=== PATIENT | male | born 1975 | race Caucasian/White ===

== ENCOUNTER 2021-09-21 07:25 | Day surgery (SDC) | payer BC ==
[~2021-09-21] VITALS: Ht 185.4 cm; Wt 94.3 kg
[~2021-09-21 07:25] MED LIST: CANDICIDAL CAP1 EACH PO; CRESTOR5 MG PO; MULTIPLE VITAM1 EAC2 PO; ZYRTEC10 MG PO
--- NOTE | 2021-09-21 08:55 | NUR ---
09/21/21 0855 Yoli Stevens 0848- PT ARRIVES TO PACU REACTIVE TO VERBAL STIMULI. PT REPORTS NO PAIN OR NAUSEA. PT FALLS INSTANTLY BACK TO SLEEP WHEN NOT BEING STIMULATED. RESP EVEN AND UNLABORED. OXYGEN SAT HIGH 90'S TO 100% ON 2L VIA CO2 NC. 0853- PT WOKEN AND ENCOURAGED TO TAKE BREATHS RESP RATE IS 8 BPM. PT IS ABLE TO DO THIS.
--- NOTE | 2021-09-22 10:46 | OR ---
[facility] [address] [place], [place] [address] Signed DATE OF OPERATION: 09/21/2021 SURGEON: Lam Jensen MD PREOPERATIVE DIAGNOSIS: Colon screening. POSTOPERATIVE DIAGNOSIS: Palpable polyps x3. PROCEDURE: Total colonoscopy to cecum with cold snare polypectomy x1 and cold morcellation polypectomy x2. ANESTHESIA: Intravenous sedation; fentanyl 100 mcg and Versed 4 mg. INDICATION: This 46-year-old white man is a patient of Dr. Jeny Rivera and is here for screening colonoscopy. He has no family history of colon cancer and no symptoms of bleeding, diarrhea or constipation. He understands the risk of colonoscopy, which include but are not limited to bleeding, infection, perforation, and so on. Understanding these risks, he wished to proceed. FINDINGS: The prep was excellent. Complete colonoscopy was undertaken to the cecum. There was a relatively small flat polyp of the proximal descending colon which was excised with cold snare technique completely. Two other small hyperplastic appearing polyps were noted, one in the sigmoid and the other somewhat distal. There were no other findings of concern. DESCRIPTION OF PROCEDURE: The patient was brought to the endoscopy suite and placed in the lateral decubitus position, given intravenous sedation to the point of slurred speech and nystagmus. Digital rectal examination was normal. An Olympus video colonoscope was passed in the rectum and manipulated throughout the colon ultimately intubating the cecum itself. The ileocecal valve and appendiceal orifice were normal. Scope was withdrawn from that point. Examination throughout showed no sign of abnormality into the proximal descending colon. A small somewhat flat Electronically Signed By: LAM JENSEN MD 09/22/21 1046 PATIENT NAME: SABAS JOSE OPERATIVE REPORT DATE OF : 71 REPORT #: [id number] PHYSICIAN: LAM JENSEN MD PCP: JENY RIVERA MD REPORT IS CONFIDENTIAL AND NOT TO BE RELEASED WITHOUT AUTHORIZATION [facility] [address], [place] [address] Signed polyp was noted in the area. It was at about 90 cm. Narrow band imaging confirmed high probability that this represents adenomatous polyp. This was excised with cold snare technique and withdrawn and passed for pathology. The scope was further withdrawn. There were two areas of probable hyperplastic polyps, one in the sigmoid and the other in the rectosigmoid, both excised with cold morcellation technique. Retroflexed view of the rectum was normal. Scope was removed and the patient was taken to the recovery room in good condition. CONCLUDING DIAGNOSIS: Polyps x3, excised. PLAN: Recommend repeat colonoscopy in 3 to 5 years depending on pathology report; if hyperplastic polyps were noted, can go certainly 7 to 10 years, sooner if symptoms should occur of course. He will return to the ongoing care of Dr. Jeny Rivera otherwise. MD KRISTEN Issa/ADAL /[id number] cc: Jeny Rivera MD Copies: JENY RIVERA DMD ~ Electronically Signed By: LAM JENSEN MD 09/22/21 1046 PATIENT NAME: SABAS JOSE OPERATIVE REPORT DATE OF : 71 REPORT #: [id number] PHYSICIAN: LAM JENSEN MD PCP: JENY RIVERA MD REPORT IS CONFIDENTIAL AND NOT TO BE RELEASED WITHOUT AUTHORIZATION
--- NOTE | 2021-09-23 09:07 | PATH ---
[facility] [address] [place], [place] [address] Signed SPECIMEN(S): A DESCENDING/LEFT COLON POLYP SPECIMEN(S): B COLON POLYP AT 40 CM SPECIMEN(S): C RECTOSIGMOID POLYP SPECIMEN SOURCE: A. DESCENDING/LEFT COLON POLYP B. COLON POLYP AT 40 CM C. RECTOSIGMOID POLYP CLINICAL HISTORY: Screening colonoscopy. Postop: Hyperplastic polyps. FINAL PATHOLOGIC DIAGNOSIS: A. Colon, descending, polyp, polypectomy: - Tubular adenoma. - Negative for high-grade dysplasia or malignancy. B. Colon, polyp at 40 cm, polypectomy: - Favor focal early tubular adenoma. - Negative for high-grade dysplasia or malignancy. C. Colon, rectosigmoid, polyp, polypectomy: - Hyperplastic polyp. - Negative for dysplasia or malignancy. COMMENT: Regarding specimen B: Multiple additional deeper levels were examined. NAL:cml:C2NR MICROSCOPIC EXAMINATION: Histologic sections of all submitted blocks are examined by light microscopy. These findings, together with the gross examination, support the pathologic diagnosis. GROSS DESCRIPTION: Three specimens are received in three containers, labeled "WH." A. The specimen, labeled "WH, descending colon polyp," is received in formalin and consists of one beth soft tissue fragment that measures 0.6 cm in greatest dimension. The specimen is bisected and entirely submitted in cassette (A1). B. The specimen, labeled "WH, colon polyp at 40 cm," is received in formalin and consists of three beth soft tissue fragments that measure 0.1-0.2 cm in greatest dimension. The specimen is entirely PATIENT NAME: SABAS JOSE PATHOLOGY DATE OF : 71 REPORT #: [id number] PHYSICIAN: NEGRO HYMAN PCP: JENY RIVERA MD REPORT IS CONFIDENTIAL AND NOT TO BE RELEASED WITHOUT AUTHORIZATION [facility] [address] [place] [id number] Signed submitted in cassette (B1). C. The specimen, labeled "WH, rectosigmoid colon polyp," is received in formalin and consists of one beth soft tissue fragment that measures 0.3 cm in greatest dimension. The specimen is entirely submitted in cassette (C1). JS (under the direct supervision of a pathologist) The Gross Description was prepared using a voice recognition system. The report was reviewed for accuracy; however, sound-alike word errors, addition and/or deletions may occur. If there is any question about this report, please contact Client Services. PERFORMING LABORATORY: The technical component was performed by [facility] [address] (CLIA# [id number]). [facility] [address] [place] [id number] (CLIA# [id number]). Diagnostician: Karen Lind MD Pathologist Electronically Signed 09/23/2021 Copies: ~ PATIENT NAME: SABAS JOSE PATHOLOGY DATE OF : 71 REPORT #: [id number] PHYSICIAN: NEGRO HYMAN PCP: JENY RIVERA MD REPORT IS CONFIDENTIAL AND NOT TO BE RELEASED WITHOUT AUTHORIZATION
== END 2021-09-21 09:37 | disposition home or self-care (01) ==
LOC: OPS 07:25 → DS 07:25 → OPS 08:30
PROVIDERS: ATTEND Surgery
PROC: 0DBN8ZX Excision of Sigmoid Colon, Via Natural or Artificial Opening Endoscopic, Diagnostic (ICD-10-PCS; 2021-09-21)
PROC: 0DBM8ZX Excision of Descending Colon, Via Natural or Artificial Opening Endoscopic, Diagnostic (ICD-10-PCS; principal; 2021-09-21 08:30)
DX: Z12.11 Encounter for screening for malignant neoplasm of colon (principal); D12.4 Benign neoplasm of descending colon; E78.5 Hyperlipidemia, unspecified; Z86.16 Personal history of COVID-19
CPT/HCPCS: 99153; G0500; J2250; J3010; J7121